=== PATIENT | male | born 1985 | race Caucasian/White ===

== ENCOUNTER → 2016-06-25 | Outpatient (CLI) | payer BC | LOC: KOH-I 11:32 | DX: S69.90XA Unspecified injury of unspecified wrist, hand and finger(s), initial encounter (principal); M79.89 Other specified soft tissue disorders | CPT/HCPCS: 73130 ==

== ENCOUNTER 2021-11-03 22:29 | Emergency (ER) | payer OTHER ==
[~2021-11-03 22:29] MED LIST: K-DUR TAB 20 M20 MEQ PO; ZOFRAN ODT 4 MG4 MG PO
[2021-11-04] MEDS ORDERED: HYDROCODON-ACE1 EAC4 PO (00:49)
[2021-11-04] MEDS ORDERED: ZOFRAN ODT 4 MG4 MG SL (00:51)
[2021-11-04] MEDS ORDERED: OMNICEF 300 MG300 MG PO (00:53)
[2021-11-07] MEDS ORDERED: CEPHALEXIN500 MG PO (08:52)
[2021-11-07] MEDS ORDERED: HYDROCODON-ACE1 EAC6 PO (08:52)
[2021-11-07] MEDS ORDERED: GABAPENTIN600 MG PO (08:52)
[2021-11-07] MEDS ORDERED: IBUPROFEN800 MG PO (08:53)
[2021-11-07] MEDS ORDERED: TIZANIDINE HCL4 MG PO (08:53)
== END 2021-11-04 01:30 | disposition home or self-care (01) ==
LOC: ER1 22:29
DX: S68.124A Partial traumatic metacarpophalangeal amputation of right ring finger, initial encounter (principal); W45.8XXA Other foreign body or object entering through skin, initial encounter; Y92.009 Unspecified place in unspecified non-institutional (private) residence as the place of occurrence of the external cause
CPT/HCPCS: 12042; 73130; 96372; 99283; J0690; J3010

== ENCOUNTER → 2021-11-07 | Day surgery (SDC) | payer OTHER ==
[~2021-11-07] MED LIST changes: +CEPHALEXIN500 MG PO; +GABAPENTIN600 MG PO; +HYDROCODON-ACE1 EAC4 PO; +HYDROCODON-ACE1 EAC6 PO; +IBUPROFEN800 MG PO; +OMNICEF 300 MG300 MG PO; +TIZANIDINE HCL4 MG PO; +ZOFRAN ODT 4 MG4 MG SL
[2021-11-07 08:51] LABS: BUN/CREATININE RATIO 19 (0-10)
== END | disposition home or self-care (01) ==
LOC: OR 07:19
PROVIDERS: Orthopaedic Surgery
DX: S68.124A Partial traumatic metacarpophalangeal amputation of right ring finger, initial encounter (principal); W23.1XXA Caught, crushed, jammed, or pinched between stationary objects, initial encounter
CPT/HCPCS: 36415; 80048; 93005; J0690; J1100; J1885; J2001; J2250; J2405; J2704; J3010

== ENCOUNTER 2022-01-14 16:38 | Emergency (ER) | payer OTHER ==
[2022-01-14 17:00] LABS: HEMOGLOBIN 11.6 gm/dl (14.0-17.5); RED BLOOD COUNT 3.94 M/UL (4.20-5.50); WHITE BLOOD COUNT 6.5 K/UL (4.5-11.0)
[2022-01-14 17:21] LABS: BUN/CREATININE RATIO 11 (0-10)
== END 2022-01-14 21:13 ==
LOC: ER1 16:38
PROVIDERS: Emergency Medicine
DX: R45.851 Suicidal ideations (principal)
CPT/HCPCS: 72100; 73610; 80053; 80307; 85025; 93005; 99285; G0480